=== PATIENT | female | born 2000 | race Caucasian/White ===

== ENCOUNTER 2022-10-04 11:31 | Emergency (ER) | payer BC ==
[2022-10-04] MEDS ORDERED: Acetaminophen 325 MG Tab PO ONE (12:12)
== END 2022-10-04 13:20 | disposition home or self-care (01) ==
LOC: JD.ED 11:31
DX: S61.531A Puncture wound without foreign body of right wrist, initial encounter (principal); W22.09XA Striking against other stationary object, initial encounter
CPT/HCPCS: 73110; 99283; A9270